=== PATIENT | female | born 1985 | race Caucasian/White ===

== ENCOUNTER → 2019-07-13 17:53 | Outpatient (CLI) | payer BC, SELFPAY ==
[2019-07-13 11:17] VITALS: BMI 31.4
[2019-07-13 21:53] LABS: Chlamydia Trachomatis by PCR Negative (Negative); Probe Check PASS
[2019-07-13 21:54] LABS: Neisserai gonorrhoeae by PCR Negative (Negative); Sample Adequacy Control PASS; Specimen Processing Control PASS
== END ==
PROVIDERS: Referring Provider Nurse Practitioner Women's Health; Visit Provider Nurse Practitioner Women's Health
DX: Z34.90 Encounter for supervision of normal pregnancy, unspecified, unspecified trimester (principal)
CPT/HCPCS: 87086; 87491; 87591

== ENCOUNTER → 2019-07-22 08:58 | Outpatient (CLI) | payer BC, SELFPAY ==
[2019-07-13 11:17] VITALS: BMI 31.4
[2019-07-22 09:38] LABS: Absolute Lymphocyte Count 1.29 X10^3/uL (0.83-4.51); Absolute Neutrophil Count 6.5 X10^3/uL (2.0-7.7); Basophil# 0.02 X10^3/uL; Basophil% 0.2 % (0-1); Eosinophils% 4.6 % (0-5); Hematocrit 37.2 % (37-47); Hemoglobin 12.3 g/dL (12.0-15.0); Lymphocyte # 1.29 X10^3/ul (4.0); Lymphocyte % 14.8 % (19-41); Mean Corp Hgb Conc 33.1 g/dL (32-36); Mean Corpuscular Hgb 29.9 pg (27.0-32.0); Mean Corpuscular Volume 90.5 fL (81-99); Mean Platelet Vol. 9.9 fl (6.2-12.0); Monocyte# 0.46 X10^3/uL; Monocyte% 5.3 % (0-10); NRBC Flagged by Analyzer 0 % (0-5); Neutrophil # 6.53 X10^3/uL (2.7-7.7); Neutrophil % 74.9 % (47-70); Platelet Count 258 K/mm3 (150-450); RBC Distribution Width CV 12.9 % (11.6-14.6); RBC Distribution Width SD 42.3 fl (35.1-43.9); Red Blood Count 4.11 M/mm3 (4.2-5.4); White Blood Count 8.7 K/mm3 (4.4-11.0)
[2019-07-22 11:14] LABS: HIV - WCH Non-Reactive (Nonreactive); Hepatitis B Surface Antigen Non-Reactive (Nonreactive); Rubella IgG 107.8 IU/mL
[2019-07-24 02:06] LABS: Rapid Plasmin Reagin (RPR) NONREACTIVE (NONREACTIVE)
== END ==
PROVIDERS: Nurse Practitioner Women's Health; Referring Provider Obstetrics & Gynecology; Visit Provider Obstetrics & Gynecology
DX: O09.511 Supervision of elderly primigravida, first trimester (principal); Z3A.00 Weeks of gestation of pregnancy not specified
CPT/HCPCS: 36415; 85025; 86592; 86703; 86762; 86850; 86900; 86901; 87340

== ENCOUNTER → 2019-09-23 14:07 | Outpatient (CLI) | payer BC, SELFPAY ==
[2019-09-23 13:26] VITALS: BMI 31.4
== END ==
PROVIDERS: Referring Provider Obstetrics & Gynecology; Visit Provider Obstetrics & Gynecology
DX: Z36.9 Encounter for antenatal screening, unspecified (principal)
CPT/HCPCS: 36415

== ENCOUNTER → 2019-11-16 13:20 | Outpatient (CLI) | payer BC, SELFPAY ==
[2019-10-21 13:46] VITALS: BMI 31.4
[2019-11-16 14:31] LABS: Absolute Lymphocyte Count 1.47 X10^3/uL (0.83-4.51); Absolute Neutrophil Count 10.2 X10^3/uL (2.0-7.7); Basophil# 0.03 X10^3/uL; Basophil% 0.2 % (0-1); Eosinophil# 0.46 X10^3/uL; Eosinophils% 3.6 % (0-5); Hematocrit 33.7 % (37-47); Hemoglobin 10.9 g/dL (12.0-15.0); Lymphocyte # 1.47 X10^3/ul (4.0); Lymphocyte % 11.6 % (19-41); Mean Corp Hgb Conc 32.3 g/dL (32-36); Mean Corpuscular Hgb 29.5 pg (27.0-32.0); Mean Corpuscular Volume 91.1 fL (81-99); Mean Platelet Vol. 9.3 fl (6.2-12.0); Monocyte# 0.42 X10^3/uL; Monocyte% 3.3 % (0-10); NRBC Flagged by Analyzer 0 % (0-5); Neutrophil # 10.21 X10^3/uL (2.7-7.7); Neutrophil % 80.8 % (47-70); Platelet Count 282 K/mm3 (150-450); RBC Distribution Width CV 12.7 % (11.6-14.6); RBC Distribution Width SD 42.1 fl (35.1-43.9); White Blood Count 12.7 K/mm3 (4.4-11.0)
[2019-11-16 14:42] LABS: Glucose Challenge Gest 1H 50g 137 mg/dL (70-140)
== END ==
PROVIDERS: Nurse Practitioner Women's Health; Visit Provider Obstetrics & Gynecology
DX: O09.91 Supervision of high risk pregnancy, unspecified, first trimester (principal); Z3A.00 Weeks of gestation of pregnancy not specified
CPT/HCPCS: 36415; 82950; 85025

== ENCOUNTER → 2020-01-12 08:42 | Outpatient (CLI) | payer BC, SELFPAY ==
[2019-12-23 10:54] VITALS: BMI 34.4
[2020-01-06 11:32] VITALS: BMI 33.4
--- NOTE | 2020-01-12 08:55 | US_ITS ---
STUDY: SECOND AND THIRD TRIMESTER OBSTETRICAL ULTRASOUND - LIMITED REASON FOR EXAM: Female, 35 years old GROWTH -- ADVANCED MATERNAL AGE LMP: 05/05/2019 PRIOR ULTRASOUND: None. TECHNIQUE: Transabdominal TECHNICAL QUALITY: Adequate. FINDINGS: There is a single intrauterine fetus. The fetus is in a cephalic presentation. There is demonstrated cardiac activity with a heart rate of 150 bpm. There is a normal amniotic fluid volume. The largest amniotic fluid pocket measures 5 x 2.1 cm. The amniotic fluid index (DION) is 15.8 cm. The placenta is anterior and low-lying There are Grade 1 placental changes. The cervix measures 4.3 cm in length and is closed. BIOMETRY: BPD: 8.71: 35 weeks, 0 days HC: 31.67: 35 weeks, 4 days AC: 31.95: 35 weeks, 6 days FL: 7.05: 36 weeks, 1 days Age by LMP: 36 weeks, 0 days. FANTA by LMP: 02/09/2020. age by prior US: 35 weeks, 3 days. FANTA by prior US: 02/13/2020. age by current US: 35 weeks, 4 days. FANTA by current US: 02/12/2020. Estimated weight: 2780 grams, +/- 411 grams, 46.44% percentile. US/OB Limited With Biometrics IMPRESSION: A single fetus is noted in cephalic presentation with a gestational age of 35 weeks 4 days based upon today''s ultrasound measurements. Electronically Signed: Morro Chang, at 18:21 EST Tel , Service support ,
== END ==
PROVIDERS: Referring Provider Nurse Practitioner Women's Health; Visit Provider Nurse Practitioner Women's Health
DX: O09.529 Supervision of elderly multigravida, unspecified trimester (principal); Z3A.35 35 weeks gestation of pregnancy
CPT/HCPCS: 76816

== ENCOUNTER → 2020-01-21 15:29 | Outpatient (CLI) | payer BC, SELFPAY ==
[2020-01-21 10:26] VITALS: BMI 33.4
== END ==
PROVIDERS: Referring Provider Obstetrics & Gynecology; Visit Provider Obstetrics & Gynecology
DX: Z34.93 Encounter for supervision of normal pregnancy, unspecified, third trimester (principal); Z3A.37 37 weeks gestation of pregnancy
CPT/HCPCS: 87081

== ENCOUNTER → 2020-02-01 10:51 | Outpatient (CLI) | payer BC, SELFPAY ==
[2020-02-01 10:41] VITALS: BMI 33.4
[2020-02-01 11:06] LABS: Absolute Lymphocyte Count 1.42 X10^3/uL (0.83-4.51); Absolute Neutrophil Count 10.6 X10^3/uL (2.0-7.7); Basophil# 0.02 X10^3/uL; Basophil% 0.2 % (0-1); Eosinophil# 0.21 X10^3/uL; Eosinophils% 1.6 % (0-5); Hematocrit 34.7 % (37-47); Hemoglobin 11.4 g/dL (12.0-15.0); Lymphocyte # 1.42 X10^3/ul (4.0); Mean Corp Hgb Conc 32.9 g/dL (32-36); Mean Corpuscular Hgb 29.2 pg (27.0-32.0); Mean Corpuscular Volume 88.7 fL (81-99); Monocyte# 0.64 X10^3/uL; Monocyte% 4.9 % (0-10); NRBC Flagged by Analyzer 0 % (0-5); Neutrophil # 10.55 X10^3/uL (2.7-7.7); Neutrophil % 81.5 % (47-70); Platelet Count 264 K/mm3 (150-450); RBC Distribution Width CV 13.1 % (11.6-14.6); RBC Distribution Width SD 42.3 fl (35.1-43.9); Red Blood Count 3.91 M/mm3 (4.2-5.4); White Blood Count 12.9 K/mm3 (4.4-11.0)
== END ==
PROVIDERS: Referring Provider Nurse Practitioner Women's Health; Visit Provider Nurse Practitioner Women's Health
DX: O99.019 Anemia complicating pregnancy, unspecified trimester (principal); Z3A.00 Weeks of gestation of pregnancy not specified
CPT/HCPCS: 36415; 85025

== ENCOUNTER → 2020-02-08 14:54 | Outpatient (CLI) | payer BC, SELFPAY ==
[2020-02-05 14:22] VITALS: BMI 33.4
--- NOTE | 2020-02-08 14:56 | US_ITS ---
STUDY: SECOND AND THIRD TRIMESTER OBSTETRICAL ULTRASOUND REASON FOR EXAM: Female, 35 years old growth. AMA. LMP: May 05, 2019. TECHNIQUE: Transabdominal TECHNICAL QUALITY: Adequate. PRIOR ULTRASOUND: January 12, 2020. FINDINGS: There is a single intrauterine fetus. The fetus is in a cephalic presentation. There is demonstrated cardiac activity with a heart rate of 136 bpm. There is decreased amniotic fluid volume consistent with oligohydramnios. The largest amniotic fluid pocket measures 3.31 cm. The amniotic fluid index (DION) is 6.66 cm. The placenta is anterior in location and is not low lying. There are Grade 2 placental changes. The cervix is not visualized. BIOMETRY: BPD: 9.32 cm: 38 weeks, 0 days HC: 33.78 cm: 38 weeks, 6 days AC: 35.37 cm: 39 weeks, 2 days FL: 7.78 cm: 39 weeks, 6 days CI: 82 FL/BPD: 83 FL/HC: FL/AC: 22 HC/AC: 0.96 age by current US: 39 weeks, 0 days. FANTA by current US: February 15, 2020. Estimated weight: 3699 grams, +/- 540 grams, 59 %. age by prior US: 39 weeks, 3 days. FANTA by prior US: February 12, 2020. Age by LMP: 39 weeks, 6 days. FANTA by LMP: February 09, 2020. US/OB Limited With Biometrics IMPRESSION: 1. Live single intrauterine at 39 weeks, 0 days. FANTA is February 15 2020. There is adequate interval growth since the prior study. 2. EFW 3699 g. 3. Oligohydramnios. The DION is 6.66 cm 4. Anterior grade 2 placenta. 5. Vertex presentation. The ordering physician''s office ([facility]) was advised of the low DION high level by the flash oven operator at 1540 hours. Electronically Signed: Kevyn Luo DO at 16:40 EDT Tel [phone], Service support ,
== END ==
PROVIDERS: Referring Provider Nurse Practitioner Women's Health; Visit Provider Nurse Practitioner Women's Health
DX: O09.522 Supervision of elderly multigravida, second trimester (principal); Z3A.39 39 weeks gestation of pregnancy
CPT/HCPCS: 76816

== ENCOUNTER 2020-02-12 06:56 | Inpatient (IN) | payer BC, SELFPAY ==
[2019-12-09 10:17] VITALS: BMI 33.4
[2020-02-11 09:58] VITALS: BMI 33.4
[2020-02-12] VITALS (36 sets, daily range): BP systolic 119–142; BP diastolic 67–93; PULSE 64–90; TEMP 36.4–36.9; O2SAT 97–99; BMI 37.5
--- NOTE | 2020-02-12 07:51 | HP.PCM_ITS ---
- Problem List (1) AMA (advanced maternal age) multigravida 35+ Status: Acute Qualifiers: Comment: genetic counseling nl, nl growth US at 36 weeks. repeat growth at 40 weeks, nst weekly after 40 plan IOL bt 40-41, patient prefers minimal intervention so exp management as long as reassuring testing (2) Abnormal glucose affecting Status: Acute Comment: declines 3gtt, plan home glucose monitoring x 1 week- within normal values mostly. encouraged healthy diet (3) Anemia affecting Status: Acute Qualifiers: Comment: iron,01/31 WNL (4) Asthma affecting in third trimester Status: Acute Comment: albuterol PRN. mild intermittent (5) History of depression Status: Acute Comment: no meds at present (6) Status: Acute Qualifiers: Comment: NIPT low risk. Carrier screening negative for 14 out of 14. AFP negative. Anatomy US normal (7) Procreative management for assisted fertility procedure cycle Status: Acute Comment: IUI-[facility] Progesterone 200mg vag daily (8) SVT (supraventricular tachycardia) Status: Acute Comment: metoprolol (9) Supervision of high risk in first trimester Status: Acute Comment: PRR FANTA 02/09/20 Girl PC Stan Flores(adopted) Spouse Adrian History and Physical Date of Admission: 02/12/20 Intake Vital Signs 02/11/20 BMI 33.4 02/11/20 Height 5 ft 9 in 02/11/20 Weight: 252 lb 8 oz 02/11/20 BMI 37.3 02/11/20 BP 128/80 H 01/06/20 BMI 33.4 Intake Visit Reasons: 39 WK OB/NST Demonstrator Sales Required: No Is patient in pain?: No Allergies No Known Allergies Allergy (Verified 02/11/20 09:55) Medications albuterol sulfate 90 mcg/actuation aerosol inhaler 2 puff INHALATION Q6H 07/13/19 [History Confirmed 02/11/20] docosahexaenoic acid 200 mg capsule mg PO cap 07/13/19 [History Confirmed 02/11/20] metoprolol succinate 25 mg tablet,extended release 24 hr 12.5 mg PO DAILY tab 07/13/19 [History Confirmed 02/11/20] blood sugar diagnostic See Rx Instructions .ROUTE .MEDSUPPLY #100 ea 11/16/19 [Rx Confirmed 02/11/20] blood-glucose meter See Rx Instructions .ROUTE .MEDSUPPLY #1 ea 11/16/19 [Rx Confirmed 02/11/20] ferrous sulfate 325 mg (65 mg iron) tablet 325 mg PO DAILY 12/09/19 [History Confirmed 02/11/20] budesonide 90 mcg/actuation breath activated powder inhaler 1 inh INHALATION BID #1 ea 01/06/20 [Rx Confirmed 02/11/20] Last Menstral Period: 05/05/19 Zika: Zika virus screening: Negative : No PFSH PFSH Medical History Asthma (Acute) Psoriasis (Acute) Supraventricular tachycardia (Acute) Surgical History [place] teeth extracted (Acute) deviated septum repair (Acute) Family History Father Heart disease Social History (Updated 02/11/20 @ 10:[address] Kadi Orozco MD) number of children: 2 current occupational status: unemployed Smoking Status: Never smoker alcohol intake: never substance use type: does not use seatbelt use: always do you feel safe at home: Yes additional social history: Adrian finance Pregancy History 2 Elective abortions Hx Para Spontaneous abortions 1 Hx # Term Pregnancies Ectopic pregnancies Hx # Pregnancies Multiple births # of living children HPI 39 WK OB/NST: Details: RENNY PECK is a 35 year old who presents for IOL secondary to AMA. she has done well with the . OB Visit FANTA Calculator Estimated Delivery Date Method Current WG Current Estimate 02/09/20 LMP (Certain) 40w 2d Other Estimates 02/11/20 Ultrasound #1 40w 0d Expected Delivery Route/Plan Labor Preferences- labor support person: Adrian pain management options preferred: minimal intervention, hydrotherapy, open to touch cut cord/dad catch: yes : yes PP control planned: discussed possible routes of delivery and associated risks: yes and no concerns special requests: [] Specific Issue/Plans fflu vaccine: given tdap vaccine: given rhogam: na LARC form signed: declined Problem list reviewed and updated with the most current plan of care details and appropriate orders placed. Relevant counseling for the gestational age provided. Continue routine care and follow up unless otherwise noted in visit notes/problem list details Initial Weight: Not Recorded Date EGA Weight BP Urine Prot Glucose FHR FuHt Pres Dilation Effaced St Visit Note 07/13/19 9w 6d 213 lb 4 oz 110/78 168 No spotting or bleeding. 07/28/19 12w 0d 213 lb 104/74 Negative Negative 175 no vb cramping 08/25/19 16w 0d 213 lb 120/76 Negative Negative 155 no vb cramping some nausea and heartburn- ordered zantac 09/23/19 20w 1d 217 lb 2 oz 122/60 Negative Negative 150 no vb cramping doing well 10/21/19 24w 1d 220 lb 4 oz 106/73 Negative Negative 144 24 Good FM. No VB, LOF 11/16/19 27w 6d 226 lb 8 oz 110/68 Negative Negative 145 28 SM- no vb lof good fm no regular ctx, discussed 3 hr gtt and declines, plan home BS monitoring 12/09/19 31w 1d 230 lb 122/68 Negative Negative 145 32 SM- no vb lof good fm no regular ctx recent URI treated with z pack and steroid pack. increased asthma symptoms but was seen and on steroid. 12/23/19 33w 1d 233 lb 124/60 Negative Negative 147 34 Good FM, No VB, LOF. Growth US at 36 wk. 01/06/20 35w 1d 238 lb 130/82 Trace Negative 140 35 SM- no vb lof good fm no regular ctx 01/21/20 37w 2d 242 lb 116/82 Negative Negative 150 37 Cephalic 1 SM- no vb lof good fm no regular ctx reviewed preferences 01/25/20 37w 6d 244 lb 2 oz 120/68 Trace 1000 g/dL 140 37 Cephalic 1 SM- no vb lof good fm no regular ctx 02/01/20 38w 6d 246 lb 120/80 Negative Negative 147 38 Cephalic 1 MH-no VB, LOF. Good FM MH-no VB, LOF. Good FM CBC today 02/05/20 39w 3d 249 lb 120/76 Negative Negative 145 39 Cephalic 1 SM- no vb lof good fm no regular ctx. discussed IOL vs exp management. 02/11/20 40w 2d 252 lb 8 oz 128/80 Negative Negative 150 40 Cephalic 2 SM- no vb lof good fm nor egular ctx hemal 13 cm Notes Visit Date: 02/11/20 ??No visit notes to display Visit Date: 02/05/20 ??No visit notes to display Visit Date: 02/01/20 ??No visit notes to display Visit Date: 01/25/20 ??No visit notes to display Visit Date: 01/21/20 ??No visit notes to display Visit Date: 01/06/20 ??No visit notes to display Visit Date: 12/23/19 ??No visit notes to display Visit Date: 12/09/19 ??No visit notes to display Visit Date: 11/16/19 ??No visit notes to display Visit Date: 10/21/19 ??Good FM. No VB, LOF ??Yue Simeon NP-C on 10/21/19 Visit Date: 09/23/19 ??no vb cramping doing well ??Kadi Orozco MD on 09/23/19 Visit Date: 08/25/19 ??no vb cramping some nausea and heartburn- ordered zantac ??Kadi Orozco MD on 08/25/19 Visit Date: 07/28/19 ??no vb cramping ??Kadi Orozco MD on 07/28/19 Visit Date: 07/13/19 ??No spotting or bleeding. ??RYAN SmileyC on 07/13/19 ACOG First Trimester First Trimester: Desire for , Alcohol, Tobacco Cessation, Illicit/Recreational Drug/Substance Use, Intimate Partner Violence, Barriers to care, Unstable Housing, Communication Barriers, Environmental/Work Hazards, Anticipated Course of Care, Toxoplasmosis Precations, Use of Any medications, Sexual activity, Exercise, Dental Care, Sauna/Hot tub use, Seat Belt use, Childbirth classes/Hospital facilities, , Travel, Indications for US and Screening for Aneuploidy Second Trimester Second Trimester: Signs and Symptoms of Labor, Selecting a care provider, Reproductive Life Planning, Care Planning, Tobacco Cessation, Depression/Anxiety and Intimate Partner Violence Third Trimester Third Trimester: Pain Management Plans, Labor support person(s), Immediate Larc, Movement Monitoring and Feeding Yes ; discussed Trial of Labor after Counseling or discussed Circumcision preference Diagnostics Diagnostics Diagnostics Glucose 1 Hr 50 gm 137 mg/dL (70-140) 11/16/19 Hgb 11.4 g/dL (12.0-15.0) L 02/01/20 Hct 34.7 % (37-47) L 02/01/20 Details: HIV: Urine Culture: Sequential Screen: NIPT Screen: ROS Const Reports system reviewed and no additional complaints, except as docu Card Reports system reviewed and no additional complaints, except as docu Resp Reports system reviewed and no additional complaints, except as docu GI Reports system reviewed and no additional complaints, except as docu, Reports nausea Reports system reviewed and no additional complaints, except as docu Musc Reports system reviewed and no additional complaints, except as docu Exam Const General: cooperative, healthy appearing, comfortable, anxious HENOR Head: normal to inspection Nose: external nose normal Face and sinus: normal facial exam Neck Neck: normal visual inspection, full ROM, no lymphadenopathy Thyroid: thyroid normal Chest Chest palpation & inspection: normal inspection of the chest Resp Effort & Inspection: normal respiratory effort GI Inspection: normal to inspection Palpation: soft, other (gravid uterus) Other: vertex and appropriate size for gestational age Other: Cervical Exam: Extrem General: pedal edema Results POC Urinalysis 2 Dip (Clinic) Office Urine Glucose Negative Last Edit by Monica Negron on 02/11/20 10:04 Office Urine Protein Negative Last Edit by Monica Negron on 02/11/20 10:04 Assessment & Plan Problems 1. Asthma affecting in third trimester O99.513; J45.909 albuterol PRN. mild intermittent 2. Abnormal glucose affecting O99.810 declines 3gtt, plan home glucose monitoring x 1 week- within normal values mostly. encouraged healthy diet 3. Anemia affecting in third trimester O99.013 iron,01/31 WNL 4. SVT (supraventricular tachycardia) I47.1 metoprolol 5. History of depression Z86.59 no meds at present 6. Procreative management for assisted fertility procedure cycle Z31.83 IUI-[facility] Progesterone 200mg vag daily 7. Supervision of high risk in first trimester O09.91 PRR FANTA 02/09/20 Girl Stan Del Rosario(adopted) Spouse Adrian 8. Multigravida of advanced maternal age in second trimester O09.522 genetic counseling nl, nl growth US at 36 weeks. repeat growth at 40 weeks, nst weekly after 40 plan IOL bt 40-41, patient prefers minimal intervention so exp management as long as reassuring testing 9. 40 weeks gestation of Z3A.40 NIPT low risk. Carrier screening negative for 14 out of 14. AFP negative. Anatomy US normal Patient presents IOL, plan management for , cytotec Pain management: minimal intervention GBS negative Management of any complications: AMA I have reviewed the [facility] and made any clinically relevant updates. Orders Orders: POC Urinalysis 2 Dip (Clinic) Today Coding Level of Care Code OB Routine Diagnoses Asthma affecting in third trimester O99.513; J45.909 Abnormal glucose affecting O99.810 Anemia affecting in third trimester O99.013 ??Trimester: third trimester SVT (supraventricular tachycardia) I47.1 History of depression Z86.59 Procreative management for assisted fertility procedure cycle Z31.83 Supervision of high risk in first trimester O09.91 Multigravida of advanced maternal age in second trimester O09.522 ??Trimester: second trimester 40 weeks gestation of Z3A.40 ??Weeks of gestation: 40 weeks
[2020-02-12 08:20] LABS: Absolute Lymphocyte Count 1.37 X10^3/uL (0.83-4.51); Absolute Neutrophil Count 8.7 X10^3/uL (2.0-7.7); Basophil# 0.02 X10^3/uL; Basophil% 0.2 % (0-1); Eosinophil# 0.22 X10^3/uL; Hemoglobin 10.8 g/dL (12.0-15.0); Lymphocyte # 1.37 X10^3/ul (4.0); Lymphocyte % 12.5 % (19-41); Mean Corp Hgb Conc 32.7 g/dL (32-36); Mean Corpuscular Hgb 29.3 pg (27.0-32.0); Mean Corpuscular Volume 89.7 fL (81-99); Mean Platelet Vol. 10.4 fl (6.2-12.0); Monocyte# 0.56 X10^3/uL; Monocyte% 5.1 % (0-10); NRBC Flagged by Analyzer 0 % (0-5); Neutrophil # 8.68 X10^3/uL (2.7-7.7); Neutrophil % 79.4 % (47-70); Platelet Count 241 K/mm3 (150-450); RBC Distribution Width CV 13.2 % (11.6-14.6); RBC Distribution Width SD 43.1 fl (35.1-43.9); Red Blood Count 3.68 M/mm3 (4.2-5.4); White Blood Count 10.9 K/mm3 (4.4-11.0)
[2020-02-12] MEDS: miSOPROStol 25 MCG TABLET VAGINAL (08:24)
[2020-02-12] MEDS: miSOPROStol 50 MCG TABLET VAGINAL (13:02)
[2020-02-12] MEDS: Lactated Ringers 500 ML 999 ML IV ×4 (16:30→22:50)
[2020-02-12] MEDS: 0.9% Normal Saline Single 100 ML IV.SOLN. IY (16:54)
[2020-02-12] MEDS: Acetaminophen 325 MG Tablet PO (17:29)
[2020-02-12] MEDS: Lactated Ringers 1,000 ML 200 ML IV (23:20)
[2020-02-12] MEDS: fentaNYL-bupivacaine (epidural) 100 ML BAG EPIDURAL (23:37)
[2020-02-13] VITALS (38 sets, daily range): BP systolic 109–155; BP diastolic 57–84; PULSE 71–117; RESP 16–18; TEMP 36.5–36.9; O2SAT 97–100
--- NOTE | 2020-02-13 00:32 | OB.TRI.PN ---
Progress Notes Date of Service: 02/13/20 Progress Note: reviewed tracing, moderate variability with intermittent late decels, resolved with position changes. /-2. Laboratory Studies: Laboratory Tests 02/12/20 02/12/20 Range/Units 07:35 07:35 WBC 10.9 (4.4-11.0) K/mm3 RBC 3.68 L (4.2-5.4) M/mm3 Hgb 10.8 L (12.0-15.0) g/dL Hct 33.0 L (37-47) % MCV 89.7 (81-99) fL MCH 29.3 (27.0-32.0) pg MCHC 32.7 (32-36) g/dL RDW Std Deviation 43.1 (35.1-43.9) fl RDW Coeff of [place]ady 13.2 (11.6-14.6) % Plt Count 241 (150-450) K/mm3 MPV 10.4 (6.2-12.0) fl Immature Gran % (Auto) 0.800 (0.0-0.9) % Neut % (Auto) 79.4 H (47-70) % Lymph % (Auto) 12.5 L (19-41) % [place] % (Auto) 5.1 (0-10) % Eos % (Auto) 2.0 (0-5) % Baso % (Auto) 0.2 (0-1) % Absolute Neuts (auto) 8.7 H (2.0-7.7) X10^3/uL Absolute Lymphs (auto) 1.37 (0.83-4.51) X10^3/uL Nucleated RBC % 0 (0-5) % Blood Type O POSITIVE Antibody Screen NEGATIVE - Problem List (1) AMA (advanced maternal age) multigravida 35+ Status: Acute Qualifiers: Comment: genetic counseling nl, nl growth US at 36 weeks. repeat growth at 40 weeks, nst weekly after 40 plan IOL bt 40-41, patient prefers minimal intervention so exp management as long as reassuring testing (2) Abnormal glucose affecting Status: Acute Comment: declines 3gtt, plan home glucose monitoring x 1 week- within normal values mostly. encouraged healthy diet (3) Anemia affecting Status: Acute Qualifiers: Comment: iron,16 WNL (4) Asthma affecting in third trimester Status: Acute Comment: albuterol PRN. mild intermittent (5) History of depression Status: Acute Comment: no meds at present (6) Status: Acute Qualifiers: Comment: NIPT low risk. Carrier screening negative for 14 out of 14. AFP negative. Anatomy US normal (7) Procreative management for assisted fertility procedure cycle Status: Acute Comment: IUI-[facility] Progesterone 200mg vag daily (8) SVT (supraventricular tachycardia) Status: Acute Comment: metoprolol (9) Supervision of high risk in first trimester Status: Acute Comment: PRR FANTA 02/09/20 Girl Stan Del Rosario(adopted) Spouse Adrian
[2020-02-13] MEDS: Mag Hydrox/Al Hydrox/Simeth 30 ML UDC PO (03:13)
[2020-02-13] MEDS: Lactated Ringers 1,000 ML 200 ML IV (03:13)
[2020-02-13] MEDS: Lactated Ringers 500 ML 999 ML IV (04:51)
[2020-02-13] MEDS: Oxytocin 30 units/NS 500 ml 30 UNITS/500 ML IV.SOLN IV (05:09)
--- NOTE | 2020-02-13 08:36 | OP.PCM_ITS ---
Problem List (1) AMA (advanced maternal age) multigravida 35+ Status: Acute Qualifiers: Comment: genetic counseling nl, nl growth US at 36 weeks. repeat growth at 40 weeks, nst weekly after 40 plan IOL bt 40-41, patient prefers minimal intervention so exp management as long as reassuring testing (2) Abnormal glucose affecting Status: Acute Comment: declines 3gtt, plan home glucose monitoring x 1 week- within normal values mostly. encouraged healthy diet (3) Anemia affecting Status: Acute Qualifiers: Comment: iron,01/31 WNL (4) Asthma affecting in third trimester Status: Acute Comment: albuterol PRN. mild intermittent (5) History of depression Status: Acute Comment: no meds at present (6) Status: Acute Qualifiers: Comment: NIPT low risk. Carrier screening negative for 14 out of 14. AFP negative. Anatomy US normal (7) Procreative management for assisted fertility procedure cycle Status: Acute Comment: IUI-[facility] Progesterone 200mg vag daily (8) SVT (supraventricular tachycardia) Status: Acute Comment: metoprolol (9) Supervision of high risk in first trimester Status: Acute Comment: PRR FANTA 02/09/20 Girl PC Stan Flores(adopted) Spouse Adrian Vaginal Delivery Maternal Presentation: Medically Indicated Induction iol ama postdates Amniotic Membrane Rupture Type: Spontaneous Amniotic Fluid Description: Moderate meconium Final FANTA: 02/09/20 Gestational age: 40 Weeks and 5 Days Date of Procedure: 02/13/20 Pre-Operative Diagnosis: iol ama postdates Post-Operative Diagnosis: same Surgery/ Procedure Performed: Spontaneous Vaginal Delivery Type of Anesthesia: Epidural Description of Procedure: Patient began pushing and delivered the head in the FELICIA presentation. The head was delivered atraumatically. The anterior and posterior shoulders delivered without complication followed by the rest of the infant and the was placed on the maternal abdomen. Delayed cord clamping was employed for approximately 60 seconds. Cord was clamped and cut and gentle traction was appl ied to the cord and the placenta delivered spontaneously immediately following it was noted to be intact with three-vessel cord. The perineum and vagina were inspected and noted to have a partial third-degree laceration that was repaired in the usual fashion reapproximating the torn muscle and capsule with 2-0 Vicryl and the remainder of the repair with 3-0 Vicryl Rapide. EBL was 400 cc. Patien t and infant tolerated delivery well. Presentation: FELICIA Placental Delivery Description: Spontaneous Placenta Disposition: [facility] Cord Entanglement: None Estimated Blood Loss: 400 A gender: Female Episiotomy Description: None Laceration: Perineal Extension/lac, 3rd degree Medications given after delivery: IV Pitocin Complications: None Multi Select Codes - Urinary/Genital Urinary/Genital CPT Codes: 91725 Vaginal Delivery [facility]
[2020-02-13] MEDS: Oxytocin 30 units/NS 500 ml 30 UNITS/500 ML IV.SOLN 334 UNITS IV (09:12)
[2020-02-13] MEDS: Ketorolac 10 MG Tablet PO ×2 (12:24→18:23)
[2020-02-13] MEDS: Docusate Sodium 100 MG Capsule PO (12:24)
[2020-02-13] MEDS: Prenatal Vits Tablet 1 TABLET PO (12:24)
--- NOTE | 2020-02-13 15:59 | CPS ---
spoke with patients nurse, patient only uses inhalers prn at home. RN will claify and call us back if patient wants tx's
[2020-02-14] VITALS (10 sets, daily range): BP systolic 113–127; BP diastolic 63–81; PULSE 77–96; RESP 16–18; TEMP 36.7
[2020-02-14] MEDS: Docusate Sodium 100 MG Capsule PO ×3 (01:16→22:24)
[2020-02-14] MEDS: Ketorolac 10 MG Tablet PO ×2 (01:17→08:01)
--- NOTE | 2020-02-14 03:54 | DCINST_ITS ---
Discharge Diet: No Restrictions Discharge Activity: Return to Normal Activity, May not drive while taking narcotic pain medications., May Shower May resume sexual activity in: 4-6 weeks Call your doctor if your incision/area has: Continuous Slow Oozing, Sudden Increased Bleeding, Increased Pain/ Swelling, Increased Redness, Foul Smelling Discharge Additional Instructions: If you experience any of the following, contact your healthcare provider. * Bleeding that soaks a pad every hour for 2 hours * Fever 100.4 or higher * Unrelieved incision or abdominal pain * Swelling, redness, discharge or bleeding from your incision or episiotomy site * Your incision begins to separate * Problems urinating (including inability to urinate or burning while urinating). * Visual changes * Severe headache * Flu-like symptoms * Pain or redness in one of both of your breasts * Pain, warmth, tenderness or swelling in your legs, especially the calf area * Frequent nausea and vomiting * Symptoms of depression or anxiety If you experience any of the following, call 911 or go to the nearest Emergency Room. * Chest pain * Problems breathing * Seizure activity * Partial or complete paralysis of a body part, slurred speech, weakness or drooping of the face, or a sudden inability to walk or hold your balance Allergies/Adverse Reactions: Allergies No Known Allergies Allergy (Verified 02/11/20 09:55) Medications to take at Discharge albuterol sulfate 90 mcg/actuation aerosol inhaler 2 puff INHALATION Q6H 07/13/19 docosahexaenoic acid 200 mg capsule mg PO cap 07/13/19 metoprolol succinate 25 mg tablet,extended release 24 hr 12.5 mg PO DAILY tab 07/13/19 ferrous sulfate 325 mg (65 mg iron) tablet 325 mg PO DAILY 12/09/19 Budesonide Inhaler 90 mcg [Pulmicort Flexhaler 90 mcg] 1 inh INHALATION BID 02/12/20 Vits [Prenatabs FA] 1 tab PO DAILY 02/12/20 Docusate Sodium [Colace] 100 mg PO BID #60 cap 02/14/20 Naproxen [Naprosyn] 250 - 500 mg PO Q8H PRN PRN #30 tab 02/14/20 The following prescriptions were given: Docusate Sodium [Colace] 100 mg PO BID #60 cap Transmission Status: [facility] Naproxen [Naprosyn] 250 - 500 mg PO Q8H PRN PRN #30 tab PRN Reason: MILD PAIN Transmission Status: [id number] [facility] Please Follow Up With: Kadi Orozco MD - [phone] When: Call to make an appointment with your doctor in 6 weeks. If you had elevated Blood pressure or 4th degree laceration you will need to be seen in 2 weeks. Primary Care Physician: Care Physician,No Primary [Primary Care Provider] - Test Results: Test results from this visit will be discussed in further detail at your follow- up appointment, if applicable.
--- NOTE | 2020-02-14 03:54 | PN.OBGYN_ITS ---
Subjective: doing well no complaints pain controlled no CP SOB N V ambulating well tolerating po lochia moderate, going well. having difficulty voiding- very swollen still. cath replaced for now. - Physical Exam Vitals/I&O's: Vital Signs Temp Pulse Resp BP Pulse Ox 98.1 F 90 18 124/81 H 98 02/14/20 00:50 02/14/20 00:51 02/14/20 00:50 02/14/20 00:51 02/13/20 15:45 Oxygen Delivery Method Room Air Weight: 254 lb 6.4 oz Body Mass Index (BMI) 37.5 Intake and Output for Last 24 Hours 02/12/20 02/13/20 02/14/20 23:59 23:59 23:59 Intake Total 3045.70 / 3045.70 Output Total 2049 400 / 400 Balance 995.70 / 995.70 -400 / -400 General: Alert, Oriented x3 Current Medications Acetaminophen (Tylenol) 1,000 mg PO Q8H PRN PRN PRN Reason: Pain Score 1-3/10 Albuterol Sulfate (Ventolin Aerosols) 2.5 mg INHALATION Q6H.RT [facility] Last Admin: 02/13/20 16:00 Dose: Not Given Documented by: Bisacodyl (Dulcolax) 10 mg RECTAL UD PRN PRN Reason: If no BM Budesonide (Pulmicort Aerosol) 0.5 mg INHALATION Q12H.RT [facility] Last Admin: 02/13/20 16:00 Dose: Not Given Documented by: Dibucaine (Dibucaine) 1 applic TOPICAL TID PRN PRN; Protocol PRN Reason: Discomfort Docusate Sodium (Colace) 100 mg PO BID [facility] Last Admin: 02/14/20 01:16 Dose: 100 mg Documented by: Ferrous Sulfate (Ferrous Sulfate) 325 mg PO DAILY@0800 [facility] Hydrocortisone (Hytone) 1 applic TOPICAL TID PRN PRN; Protocol PRN Reason: Discomfort Ketorolac Tromethamine (Toradol) 10 mg PO Q6H PRN PRN PRN Reason: Pain Score 1-5/10 Stop: 02/18/20 09:39 Last Admin: 02/14/20 01:17 Dose: 10 mg Documented by: Methylergonovine Maleate (Methergine) 0.2 mg IM X1 PRN PRN Reason: Excess bleeding/uterine atony Ondansetron HCl (Zofran) 4 mg IV Q4H PRN PRN PRN Reason: Nausea Oxycodone HCl (Oxyir) 5 - 10 mg PO Q4H PRN PRN PRN Reason: Pain Score 4-10/10 Multivit/Folic Acid/Iron (Prenatabs Fa) 1 tablet PO DAILY@1200 [facility] Last Admin: 02/13/20 12:24 Dose: 1 tablet Documented by: Senna/Docusate Sodium (Senokot-S, Felecia-Colace) 1 - 2 tablet PO DAILY PRN PRN PRN Reason: Constipation Simethicone (Mylicon) 80 mg PO PCHS PRN PRN Reason: Indigestion/Stomach pain Sodium Chloride () 5 - 15 ml IV UD PRN PRN Reason: SALINE FLUSH Throat Lozenges (Dermoplast (Sp)) 1 applic TOPICAL 4X/DAY PRN PRN; Protocol PRN Reason: Pain Score 1-10/10 Last Admin: 02/13/20 20:22 Dose: 1 applic Documented by: Medical Necessity - Tobacco Use Smoking Status: Never smoker Assessment/Plan All Active Problems (Last Reviewed 02/11/20 @ 09:54 by Monica Negron) Asthma affecting in third trimester (Acute) Abnormal glucose affecting (Acute) Anemia affecting (Acute ~11/2019) SVT (supraventricular tachycardia) (Acute) History of depression (Acute) Procreative management for assisted fertility procedure cycle (Acute) Supervision of high risk in first trimester (Acute) AMA (advanced maternal age) multigravida 35+ (Acute) (Acute) Subchorionic hemorrhage in first trimester (Resolved) s/p PPD # 1 1. routine post delivery care 2. breast feeding- support given 3. rh positive 4. rubella immune voiding difficulty- cath x 6 hours and then will resume voiding trial consider dc home today
--- NOTE | 2020-02-14 08:21 | NURSING ---
gomes in place
[2020-02-14] MEDS: Ferrous Sulfate 325 MG Tablet PO (09:14)
[2020-02-14] MEDS: Acetaminophen 500 MG Tablet 1000 MG PO ×2 (14:20→22:24)
[2020-02-14] MEDS: Prenatal Vits Tablet 1 TABLET PO (14:20)
--- NOTE | 2020-02-14 15:35 | NURSING ---
Patient report of some dribbling during voiding on toilet- patient voided 50 ml in hat. Once patient got into the shower about 30 minutes later, she reported voiding normally in shower and feeling like she emptied her bladder. Amount was not measured, but patient feels like bladder was emptied adequately. This RN replaced the hat in the toilet and told the patient to try to void into the toilet another time if she can in the next few hours!
[2020-02-14] MEDS: Naproxen 250 MG Tablet 500 MG PO (18:33)
[2020-02-15 02:30] VITALS: BP 115/75; PULSE 82; RESP 16; TEMP 36.7
[2020-02-15 02:37] VITALS: BP 115/75; PULSE 82
[2020-02-15] MEDS: Naproxen 250 MG Tablet 500 MG PO (02:41)
--- NOTE | 2020-02-15 06:56 | PCM.PN.OB ---
Subjective: doing well no complaints pain controlled no CP SOB N V ambulating well tolerating po lochia moderate, going well - Physical Exam Vitals/I&O's: Vital Signs Temp Pulse Resp BP Pulse Ox 98.0 F 82 16 115/75 98 02/15/20 02:30 02/15/20 02:37 02/15/20 02:30 02/15/20 02:37 02/13/20 15:45 Oxygen Delivery Method Room Air Weight: 254 lb 6.4 oz Body Mass Index (BMI) 37.5 Intake and Output for Last 24 Hours 02/13/20 02/14/20 02/15/20 23:59 23:59 23:59 Intake Total 3045.70 / 3045.70 Output Total 2049 / 2049 1050 / 1050 100 / 100 Balance 995.70 / 995.70 -1050 / -1050 -100 / -100 General: Alert, Oriented x3 Current Medications Acetaminophen (Tylenol) 1,000 mg PO Q8H PRN PRN PRN Reason: Pain Score 1-3/10 Last Admin: 02/14/20 22:24 Dose: 1,000 mg Documented by: Albuterol Sulfate (Ventolin Aerosols) 2.5 mg INHALATION Q6H.RT [facility] Last Admin: 02/15/20 01:03 Dose: Not Given Documented by: Bisacodyl (Dulcolax) 10 mg RECTAL UD PRN PRN Reason: If no BM Budesonide (Pulmicort Aerosol) 0.5 mg INHALATION Q12H.RT [facility] Last Admin: 02/14/20 18:47 Dose: Not Given Documented by: Dibucaine (Dibucaine) 1 applic TOPICAL TID PRN PRN; Protocol PRN Reason: Discomfort Docusate Sodium (Colace) 100 mg PO BID [facility] Last Admin: 02/14/20 22:24 Dose: 100 mg Documented by: Ferrous Sulfate (Ferrous Sulfate) 325 mg PO DAILY@0800 [facility] Last Admin: 02/14/20 09:14 Dose: 325 mg Documented by: Hydrocortisone (Hytone) 1 applic TOPICAL TID PRN PRN; Protocol PRN Reason: Discomfort Methylergonovine Maleate (Methergine) 0.2 mg IM X1 PRN PRN Reason: Excess bleeding/uterine atony Naproxen (Naprosyn) 500 mg PO BID PRN PRN Reason: PAIN 1-10/10 Last Admin: 02/15/20 02:41 Dose: 500 mg Documented by: Ondansetron HCl (Zofran) 4 mg IV Q4H PRN PRN PRN Reason: Nausea Oxycodone HCl (Oxyir) 5 - 10 mg PO Q4H PRN PRN PRN Reason: Pain Score 4-10/10 Multivit/Folic Acid/Iron (Prenatabs Fa) 1 tablet PO DAILY@1200 [facility] Last Admin: 02/14/20 14:20 Dose: 1 tablet Documented by: Senna/Docusate Sodium (Senokot-S, Felecia-Colace) 1 - 2 tablet PO DAILY PRN PRN PRN Reason: Constipation Simethicone (Mylicon) 80 mg PO PCHS PRN PRN Reason: Indigestion/Stomach pain Sodium Chloride () 5 - 15 ml IV UD PRN PRN Reason: SALINE FLUSH Throat Lozenges (Dermoplast (Sp)) 1 applic TOPICAL 4X/DAY PRN PRN; Protocol PRN Reason: Pain Score 1-10/10 Last Admin: 02/13/20 20:22 Dose: 1 applic Documented by: Medical Necessity - Tobacco Use Smoking Status: Never smoker Assessment/Plan All Active Problems (Last Reviewed 02/11/20 @ 09:54 by Monica Negron) Asthma affecting in third trimester (Acute) Abnormal glucose affecting (Acute) Anemia affecting (Acute ~11/2019) SVT (supraventricular tachycardia) (Acute) History of depression (Acute) Procreative management for assisted fertility procedure cycle (Acute) Supervision of high risk in first trimester (Acute) AMA (advanced maternal age) multigravida 35+ (Acute) (Acute) Subchorionic hemorrhage in first trimester (Resolved) s/p PPD #2 1. routine post delivery care 2. breast feeding- support given 3. rh positive 4. rubella immune
[2020-02-15 08:18] VITALS: BP 115/76; PULSE 93
[2020-02-15] MEDS: Acetaminophen 500 MG Tablet 1000 MG PO (08:25)
[2020-02-15] MEDS: Docusate Sodium 100 MG Capsule PO (08:26)
[2020-02-15] MEDS: Ferrous Sulfate 325 MG Tablet PO (08:27)
[2020-02-15 08:30] VITALS: BP 115/78; PULSE 70; RESP 16; TEMP 36.6
== END 2020-02-15 10:15 | disposition home or self-care (01) | DRG 768 ==
PROVIDERS: Admitting Provider Obstetrics & Gynecology; Referring Provider Obstetrics & Gynecology; Visit Provider Obstetrics & Gynecology
DX: O48.0 Post-term pregnancy (principal); O70.20 Third degree perineal laceration during delivery, unspecified; O77.0 Labor and delivery complicated by meconium in amniotic fluid; O99.42 Diseases of the circulatory system complicating childbirth; I47.1 Supraventricular tachycardia; O76 Abnormality in fetal heart rate and rhythm complicating labor and delivery; O99.52 Diseases of the respiratory system complicating childbirth; J45.909 Unspecified asthma, uncomplicated; O99.02 Anemia complicating childbirth; D64.9 Anemia, unspecified; Z79.899 Other long term (current) drug therapy; Z3A.40 40 weeks gestation of pregnancy; Z37.0 Single live birth
CPT/HCPCS: 59025; 59050; 85025; 86850; 86900; 86901; 99218; J7120; G0378

== ENCOUNTER → 2020-02-19 16:10 | Outpatient (CLI) | payer BC, SELFPAY ==
[2020-02-19 11:57] VITALS: BMI 37.5
== END ==
PROVIDERS: Referring Provider Obstetrics & Gynecology; Visit Provider Obstetrics & Gynecology
DX: R30.0 Dysuria (principal)
CPT/HCPCS: 87077; 87086; 87088; 87186

== ENCOUNTER → 2020-03-03 11:29 | Outpatient (CLI) | payer BC, SELFPAY ==
[2020-02-19 11:57] VITALS: BMI 37.5
== END ==
PROVIDERS: Referring Provider Obstetrics & Gynecology; Visit Provider Obstetrics & Gynecology
DX: O92.29 Other disorders of breast associated with pregnancy and the puerperium (principal)
CPT/HCPCS: 96158; 96159

== ENCOUNTER → 2020-03-11 15:30 | Outpatient (CLI) | payer BC, SELFPAY ==
[2020-03-11 14:45] VITALS: BMI 37.5
== END ==
PROVIDERS: Referring Provider Obstetrics & Gynecology; Visit Provider Obstetrics & Gynecology
DX: N89.8 Other specified noninflammatory disorders of vagina (principal)
CPT/HCPCS: 87070; 87205

== ENCOUNTER → 2020-06-18 16:04 | Outpatient (CLI) | payer BC, SELFPAY ==
[2020-03-24 13:41] VITALS: BMI 37.5
== END ==
PROVIDERS: Referring Provider Obstetrics & Gynecology; Visit Provider Obstetrics & Gynecology
DX: Z39.1 Encounter for care and examination of lactating mother (principal)
CPT/HCPCS: 96158; 96159

== ENCOUNTER → 2020-11-24 10:31 | Outpatient (CLI) | payer BC, SELFPAY ==
[2020-03-24 13:41] VITALS: BMI 37.5
[2020-11-24 11:42] LABS: hCG Titer Quant., Serum 33 mIU/mL (1-3)
== END ==
PROVIDERS: Referring Provider Obstetrics & Gynecology; Visit Provider Obstetrics & Gynecology
DX: N91.2 Amenorrhea, unspecified (principal)
CPT/HCPCS: 36415; 84702

== ENCOUNTER → 2020-11-26 10:35 | Outpatient (CLI) | payer BC, SELFPAY ==
[2020-03-24 13:41] VITALS: BMI 37.5
[2020-11-26 11:34] LABS: hCG Titer Quant., Serum 104 mIU/mL (1-3)
== END ==
PROVIDERS: Referring Provider Obstetrics & Gynecology; Visit Provider Obstetrics & Gynecology
DX: N91.2 Amenorrhea, unspecified (principal)
CPT/HCPCS: 36415; 84702

== ENCOUNTER → 2020-12-30 | Outpatient (CLI) | payer BC, SELFPAY ==
[2020-12-30 08:19] VITALS: BMI 36.3
[2020-12-30 18:08] LABS: Amphetamine Urine VISTA NEGATIVE (<1000 ng/mL); Barbiturate Urine VISTA NEGATIVE (< 200 ng/mL); Benzodiazepine Urine VISTA NEGATIVE (< 200 ng/mL); Cocaine Urine VISTA NEGATIVE (< 300 ng/mL); Ecstacy Urine VISTA NEGATIVE (< 500 ng/mL); Methadone Urine VISTA NEGATIVE (< 300 ng/mL); PCP Urine VISTA NEGATIVE (< 25 ng/mL); THC Urine VISTA NEGATIVE (< 50 ng/mL); Vista UDS pH Range 5
[2021-01-03 04:08] LABS: Chlamydia By Nucleic Acid AMP Negative (Negative)
[2021-01-03 07:41] LABS: Gonococcus By Nucleic Acid AMP Negative (Negative)
[2021-01-05 20:10] LABS: HPV Genotype 16, Aptima Negative (Negative)
[2021-01-06 10:49] LABS: HPV APTIMA, High Risk Positive (Negative); HPV Genotype 18,45 Aptima Negative (Negative)
== END | disposition home or self-care (01) ==
LOC: LABSPEC 16:45
PROVIDERS: Visit Provider Obstetrics & Gynecology
DX: Z12.4 Encounter for screening for malignant neoplasm of cervix (principal); Z11.3 Encounter for screening for infections with a predominantly sexual mode of transmission; Z34.90 Encounter for supervision of normal pregnancy, unspecified, unspecified trimester
CPT/HCPCS: 80307; 87086; 87088; 87491; 87591; 87624; 88175; G0145

== ENCOUNTER → 2021-01-13 14:44 | Outpatient (CLI) | payer BC, SELFPAY ==
[2020-12-30 08:19] VITALS: BMI 36.3
[2021-01-13 15:29] LABS: Absolute Lymphocyte Count 1.56 X10^3/uL (0.83-4.51); Absolute Neutrophil Count 7.6 X10^3/uL (2.0-7.7); Basophil# 0.03 X10^3/uL; Basophil% 0.3 % (0-1); Eosinophil# 0.23 X10^3/uL; Eosinophils% 2.3 % (0-5); Hematocrit 39.6 % (37-47); Hemoglobin 12.4 g/dL (12.0-15.0); Lymphocyte # 1.56 X10^3/ul (4.0); Lymphocyte % 15.9 % (19-41); Mean Corp Hgb Conc 31.3 g/dL (32-36); Mean Corpuscular Hgb 27.7 pg (27.0-32.0); Mean Corpuscular Volume 88.6 fL (81-99); Mean Platelet Vol. 10.1 fl (6.2-12.0); Monocyte# 0.35 X10^3/uL; Monocyte% 3.6 % (0-10); NRBC Flagged by Analyzer 0 % (0-5); Neutrophil # 7.64 X10^3/uL (2.7-7.7); Neutrophil % 77.8 % (47-70); Platelet Count 271 K/mm3 (150-450); RBC Distribution Width CV 13.2 % (11.6-14.6); Red Blood Count 4.47 M/mm3 (4.2-5.4); White Blood Count 9.8 K/mm3 (4.4-11.0)
[2021-01-13 16:43] LABS: HIV - WCH Non-Reactive (Nonreactive); Hepatitis B Surface Antigen Non-Reactive (Nonreactive); Hepatitis C Antibody Non-Reactive (Nonreactive); Rubella IgG Reactive (Nonreactive)
[2021-01-16 08:36] LABS: Syphilis Antibodies Non-reactive
== END ==
PROVIDERS: Referring Provider Obstetrics & Gynecology; Visit Provider Obstetrics & Gynecology
DX: Z34.90 Encounter for supervision of normal pregnancy, unspecified, unspecified trimester (principal)
CPT/HCPCS: 36415; 85025; 86592; 86703; 86762; 86803; 86850; 86900; 86901; 87340

== ENCOUNTER → 2021-02-27 10:15 | Outpatient (CLI) | payer OTHER, SELFPAY ==
[2021-02-27 09:43] VITALS: BMI 35.0
== END ==
PROVIDERS: Obstetrics & Gynecology; Referring Provider Nurse Practitioner Women's Health; Visit Provider Nurse Practitioner Women's Health
DX: O09.529 Supervision of elderly multigravida, unspecified trimester (principal); Z3A.00 Weeks of gestation of pregnancy not specified
CPT/HCPCS: 36415

== ENCOUNTER → 2021-04-28 11:26 | Outpatient (CLI) | payer OTHER, SELFPAY ==
[2021-04-28 11:07] VITALS: BMI 35.0
[2021-04-28 13:41] LABS: Absolute Lymphocyte Count 1.31 X10^3/uL (0.83-4.51); Absolute Neutrophil Count 9.8 X10^3/uL (2.0-7.7); Basophil# 0.01 X10^3/uL; Basophil% 0.1 % (0-1); Eosinophil# 0.21 X10^3/uL; Eosinophils% 1.8 % (0-5); Hematocrit 35.2 % (37-47); Hemoglobin 11.2 g/dL (12.0-15.0); Lymphocyte # 1.31 X10^3/ul (0.83-4.51); Mean Corp Hgb Conc 31.8 g/dL (32-36); Mean Corpuscular Hgb 28.9 pg (27.0-32.0); Mean Corpuscular Volume 90.7 fL (81-99); Mean Platelet Vol. 10.2 fl (6.2-12.0); Monocyte# 0.47 X10^3/uL; Monocyte% 3.9 % (0-10); NRBC Flagged by Analyzer 0 % (0-5); Neutrophil # 9.84 X10^3/uL (2.7-7.7); Neutrophil % 82.5 % (47-70); Platelet Count 290 K/mm3 (150-450); RBC Distribution Width CV 13.3 % (11.6-14.6); RBC Distribution Width SD 44.3 fl (35.1-43.9); Red Blood Count 3.88 M/mm3 (4.2-5.4); White Blood Count 11.9 K/mm3 (4.4-11.0)
[2021-04-28 14:08] LABS: Glucose Challenge Gest 1H 50g 126 mg/dL (70-140)
== END ==
PROVIDERS: Referring Provider Nurse Practitioner Women's Health; Visit Provider Nurse Practitioner Women's Health
DX: O09.90 Supervision of high risk pregnancy, unspecified, unspecified trimester (principal); Z13.1 Encounter for screening for diabetes mellitus
CPT/HCPCS: 36415; 82950; 85025

== ENCOUNTER → 2021-07-07 14:34 | Outpatient (CLI) | payer OTHER, SELFPAY ==
[2021-06-13 10:00] VITALS: BMI 35.0
--- NOTE | 2021-07-07 14:36 | US_ITS ---
STUDY: SECOND AND THIRD TRIMESTER OBSTETRICAL ULTRASOUND - LIMITED REASON FOR EXAM: Female, 36 years old growth LMP: 10/28/2020. PRIOR ULTRASOUND: None. TECHNIQUE: Transabdominal TECHNICAL QUALITY: Adequate. FINDINGS: There is a single intrauterine fetus. The fetus is in a cephalic presentation. There is demonstrated cardiac activity with a heart rate of 140 bpm. There is a normal amniotic fluid volume. The largest amniotic fluid pocket measures 5.6 cm. The amniotic fluid index (DION) is 16.5 cm. The placenta is anterior in location and is not low lying. There are Grade 2 placental changes. The cervix was not measured due to the head position. BIOMETRY: BPD: 8.7 cm: 35 weeks, 2 days HC: 32.3 cm: 36 weeks, 3 days AC: 34.3 cm: 38 weeks, 1 days FL: 7.5 cm: 38 weeks, 3 days Age by LMP: 36 weeks, 6 days. FANTA by LMP: 08/04/2021. age by current US: 36 weeks, 6 days. FANTA by current US: 2020. Estimated weight: 3332 grams, +/- 500 grams, 92% percentile. US/OB Limited With Biometrics IMPRESSION: Single live intrauterine gestation with a mean gestational age of 36 weeks and 6 days. Electronically Signed: Marco Page MD at 9:56 EDT , Service support ,
== END ==
PROVIDERS: Referring Provider Obstetrics & Gynecology; Visit Provider Obstetrics & Gynecology
DX: O09.522 Supervision of elderly multigravida, second trimester (principal); I47.1 Supraventricular tachycardia; Z3A.00 Weeks of gestation of pregnancy not specified
CPT/HCPCS: 76816

== ENCOUNTER → 2021-07-11 09:59 | Outpatient (CLI) | payer OTHER, SELFPAY ==
[2021-07-11 10:23] LABS: Absolute Lymphocyte Count 1.29 X10^3/uL (0.83-4.51); Absolute Neutrophil Count 8.9 X10^3/uL (2.0-7.7); Basophil# 0.02 X10^3/uL; Basophil% 0.2 % (0-1); Eosinophil# 0.12 X10^3/uL; Eosinophils% 1.1 % (0-5); Hematocrit 33.2 % (37-47); Hemoglobin 10.9 g/dL (12.0-15.0); Lymphocyte # 1.29 X10^3/ul (0.83-4.51); Lymphocyte % 11.8 % (19-41); Mean Corp Hgb Conc 32.8 g/dL (32-36); Mean Corpuscular Hgb 28.9 pg (27.0-32.0); Mean Corpuscular Volume 88.1 fL (81-99); Mean Platelet Vol. 10.6 fl (6.2-12.0); Monocyte# 0.63 X10^3/uL; Monocyte% 5.7 % (0-10); NRBC Flagged by Analyzer 0 % (0-5); Neutrophil # 8.85 X10^3/uL (2.7-7.7); Neutrophil % 80.7 % (47-70); Platelet Count 252 K/mm3 (150-450); RBC Distribution Width CV 13.2 % (11.6-14.6); RBC Distribution Width SD 42.2 fl (35.1-43.9); Red Blood Count 3.77 M/mm3 (4.2-5.4)
[2021-07-11 11:04] LABS: ALB/GLOB Ratio 0.6 RATIO (0.9-2.4); AST(SGOT) 15 U/L (15-37); Alanine Aminotransfer ALT/SGPT 14 U/L (13-56); Albumin, Serum 2.5 g/dL (3.2-5.0); Alkaline Phosphatase 108 U/L (45-117); Anion Gap 5 (5-15); BUN 11 mg/dL (7-18); BUN/Creat Ratio 18.2 RATIO (10-20); Chloride 113 mmol/L (98-107); Creatinine, Serum 0.61 mg/dL (0.55-1.02); EST Glomerular Filtration Rate 117 mL/min (>60); Est Glom Filt Rate - Afr Amer 142 mL/min (>60); Globulin 4.1 g/dL (2.2-4.2); Glucose 90 mg/dL (74-106); Potassium 4.1 mmol/L (3.5-5.1); Protein, Total 6.6 g/dL (6.4-8.2); Sodium Level 139 mmol/L (136-145)
== END ==
PROVIDERS: Referring Provider Obstetrics & Gynecology; Visit Provider Obstetrics & Gynecology
DX: O09.93 Supervision of high risk pregnancy, unspecified, third trimester (principal); O16.3 Unspecified maternal hypertension, third trimester; Z3A.00 Weeks of gestation of pregnancy not specified
CPT/HCPCS: 36415; 80053; 85025; 87081

== ENCOUNTER 2021-07-23 23:09 | Inpatient (IN) | payer OTHER, SELFPAY ==
[2021-07-24] VITALS (24 sets, daily range): BP systolic 113–150; BP diastolic 66–93; PULSE 68–96; RESP 16; TEMP 36.2–37; O2SAT 97–99; BMI 38.4
[2021-07-24] MEDS: Lactated Ringers 1,000 ML 50 ML IV (01:05)
[2021-07-24] MEDS: Lactated Ringers 500 ML 999 ML IV (01:05)
[2021-07-24 01:17] LABS: Absolute Lymphocyte Count 1.37 X10^3/uL (0.83-4.51); Basophil# 0.02 X10^3/uL; Basophil% 0.2 % (0-1); Eosinophil# 0.13 X10^3/uL; Hematocrit 34.5 % (37-47); Hemoglobin 11.3 g/dL (12.0-15.0); Lymphocyte # 1.37 X10^3/ul (0.83-4.51); Lymphocyte % 10.3 % (19-41); Mean Corp Hgb Conc 32.8 g/dL (32-36); Mean Corpuscular Hgb 28.5 pg (27.0-32.0); Mean Corpuscular Volume 87.1 fL (81-99); Mean Platelet Vol. 10.7 fl (6.2-12.0); Monocyte# 0.65 X10^3/uL; Monocyte% 4.9 % (0-10); NRBC Flagged by Analyzer 0 % (0-5); Neutrophil % 82.8 % (47-70); Platelet Count 307 K/mm3 (150-450); RBC Distribution Width SD 41.2 fl (35.1-43.9); Red Blood Count 3.96 M/mm3 (4.2-5.4); White Blood Count 13.3 K/mm3 (4.4-11.0)
[2021-07-24] MEDS: Oxytocin 30 units/NS 500 ml 30 UNITS/500 ML IV.SOLN 334 UNITS IV (02:45)
--- NOTE | 2021-07-24 03:02 | HP.PCM.OB_ITS ---
HPI - General General Date of Admission: 07/23/21 HPI Narrative RENNY PECK, is a 36 F at 38/3 who presents in active labor Maternal Data Information FANTA Calculator Estimated Delivery Date Method Current WG Current Estimate 08/04/21 LMP (Certain) 38w 3d Other Estimates 08/03/21 Ultrasound #1 38w 4d PFSH PFSH Medical History (Updated 07/24/21 @ 03:[address] Krystina Mcqueen MD) Asthma Gestational HTN History of tetanus, diphtheria, and acellular pertussis booster vaccination (Tdap) HPV (human papilloma virus) infection Infertility Psoriasis Supraventricular tachycardia Home Medications vit,[id number] 1 tab PO DAILY 02/12/20 [History Last Taken 07/23/21 21:00] famotidine [Pepcid] 20 mg PO DAILY 07/24/21 [History Last Taken 07/21/21 08:00] Allergy/AdvReac Type Severity Reaction Status Date / Time No Known Allergies Allergy Verified 07/24/21 00:29 Family History Father Heart disease Surgical History deviated septum repair History of nasal surgery [place] teeth extracted Social History adopted: No household members: family housing: house number of children: 1 current occupational status: unemployed Smoking Status: Never smoker alcohol intake: never substance use type: does not use seatbelt use: always do you feel safe at home: Yes additional social history: Bi finance History 3 Elective abortions Hx Para 1 Spontaneous abortions 1 Hx # Term Pregnancies Ectopic pregnancies Hx # Pregnancies Multiple births # of living children 1 Past Pregnancies Del. Date Name GA/Weeks Outcome Route Bth Weight Gen Labor Lgth Anesthesia Del Locatn Provider FOB 02/13/20 Danielle 40 live - full term 7lbs 14oz Female epidural [facility] Delivery Date: 02/13/20 IoL AMA, 3RD DEGREE LACERATION Carmina Wiley Visit Details Expected Delivery Route/Plan Labor Preferences- labor support person: bi labor intervention preferences: minimal intervention, ideally would like only vaccinated staff members, had reaction to sutures after last delivery, tub in labor pain management options preferred: open to epidural cut cord/dad catch: yes : yes PP control planned: vasectomy discussed possible routes of delivery and associated risks: undecided if would be willing to utilize vacuum, declines forceps special requests: [] Plans covid vaccine: vaccinated flu vaccine: declined tdap vaccine: 04/28 rhogam: NA LARC form signed: 05/15 Problem list reviewed and updated with the most current plan of care details and appropriate orders placed. Relevant counseling for the gestational age provided. Continue routine care and follow up unless otherwise noted in visit notes/problem list details OB Flowsheet Initial Weight: 246 lb Date -?-?-?-?-?-?-?-?-?-?-?-?- EGA Weight BP Urine Prot -?-?-?-?-?-?-?-?-?-?-?-?- Glucose FHR FuHt Pres Dilation -?-?-?-?-?-?-?-?-?-?-?-?- Effaced St Visit Note 12/30/20 -?-?-?-?--?-?-?-?-?-?-?-?- 9w 0d 246 lb (+0 oz) 132/76 132/76 -?-?-?-?-?-?-?-?-?-?-?-?- 170 -?-?-?-?-?-?-?-?-?-?-?-?- SM- CRL cons wit h LMP SM- CRL 2.2 cons with LMP 02/03/21 -?-?-?-?-?-?-?-?-?-?-?-?- 14w 0d 242 lb (-4 lb) 120/76 Negative -?-?-?-?-?-?-?-?-?-?-?-?- Negative 150 -?-?-?-?-?-?-?-?-?-?-?-?- SM- no vb crampi ng still some nausea 02/27/21 -?-?-?-?-?-?-?-?-?-?-?-?- 17w 3d 237 lb 6 oz (-8 lb 10 oz) 126/70 Trace -?-?-?-?-?-?-?-?-?-?-?-?- Negative 146 -?-?-?-?-?-?-?-?-?-?-?-?- MH-NO VB, LOF. N ausea can still be problematic. US scheduled. AFP today. 03/27/21 -?-?-?-?-?-?-?-?-?-?-?-?- 21w 3d 237 lb (-9 lb) 96/74 Negative -?-?-?-?-?-?-?-?-?-?-?-?- Negative 145 -?-?-?-?-?-?-?-?-?-?-?-?- SM- obtain anato my results, fu with PCP regarding asthma. ordered pepcid for reflux 04/28/21 -?-?-?-?-?-?-?-?-?-?--?-?- 26w 0d 243 lb (-3 lb) 110/86 Negative -?-?-?-?-?-?-?-?-?-?-?-?- Negative 145 26 -?-?-?-?-?-?-?-?-?-?-?-?- SM- just got out of the hospital with Stan. doing okay had infection. no vb good fm no regular ctx 05/15/21 -?-?-?-?-?-?-?-?-?-?-?-?- 28w 3d 249 lb 6 oz (+3 lb 6 oz) 122/82 Negative -?-?-?-?-?-?-?-?-?-?-?-?- Negative 130 28 -?-?-?-?-?-?-?-?-?-?-?-?- GP - no LOF, VB, DFM, ctx. LARC form signed. 05/29/21 -?-?-?-?-?-?-?-?-?-?-?-?- 30w 3d 252 lb (+6 lb) 110/78 Negative -?-?-?-?-?-?-?-?-?-?-?-?- Negative 150 30 -?-?-?-?-?-?-?-?-?-?-?-?- GP - no LOF, VB, DFM, ctx. Denies complaints. 06/13/21 -?-?-?-?-?-?-?-?-?-?-?-?- 32w 4d 254 lb (+8 lb) 114/82 Negative -?-?-?-?-?-?-?-?-?-?-?-?- 100 g/dL 140 32 -?-?-?-?-?-?-?-?-?-?-?-?- SM- no vb lof go od fm nor egular ctx 06/28/21 -?-?-?-?-?-?--?-?-?-?-?-?- 34w 5d 257 lb 6 oz (+11 lb 6 oz) 122/82 Negative -?-?-?-?-?-?-?-?-?-?-?-?- Negative 140 34 -?-?-?-?-?-?-?-?-?-?-?-?- GP - no LOF, VB, DFM, ctx. Denies complaints. GP - no LOF, VB, DFM, ctx. D enies complaints. Discussed labor preferences 07/11/21 -?-?-?-?-?-?-?-?-?-?-?-?- 36w 4d 264 lb (+18 lb) 132/76 Negative -?-?-?-?-?-?-?-?-?-?-?-?- Negative 140 38 -?-?-?-?-?-?-?-?-?-?-?-?- SM- no vb lof go od fm nor egular ctx SM- no vb lof good fm nor eg ular ctx. intermittent REZA, bps normal at home when supine, check cbc cmp preeclampsia precautions reviewed 07/20/21 -?-?-?-?-?-?-?-?-?-?-?-?- 37w 6d 266 lb 2 oz (+20 lb 2 oz) 138/80 Negative -?-?-?-?-?-?-?-?-?-?-?-?- Negative 135 38 Cephalic 1 -?-?-?-?-?-?-?-?-?-?-?-?- GP - no LOF, VB, DFM, ctx. Denies complaints. 07/23/21 -?-?-?-?-?-?-?-?-?-?-?-?- 38w 2d 260 lb 2.327 oz (+14 lb 2.327 oz) 140/93 147/70 -?-?-?-?-?-?-?-?-?-?-?-?- -?-?-?-?-?-?-?-?-?-?-?-?- NST FHR Rate Baby A Baseline: 120 Variability:: Moderate Accelerations:: 15 x 15 Decelerations:: Variable FHR Category:: Category II Uterine Activity:: q2 min ROS Eyes Eyes: Reports systems reviewed and no addt'l complaints, except as documented ENT HEENT: Reports systems reviewed and no addt'l complaints, except as documented Cardiovascular Cardiovascular: Reports systems reviewed and no addt'l complaints, except as documented Respiratory/Chest Respiratory/Chest: Reports systems reviewed and no addt'l complaints, except as documented Gastrointestinal Gastrointestinal: Reports systems reviewed and no addt'l complaints, except as documented Genitourinary Genitourinary: Reports systems reviewed and no addt'l complaints, except as documented Musculoskeletal Musculoskeletal: Reports systems reviewed and no addt'l complaints, except as documented Integumentary Integumentary: Reports systems reviewed and no addt'l complaints, except as documented Neurologic Neurologic: Reports systems reviewed and no addt'l complaints, except as documented Psychiatric Psychiatric: Reports systems reviewed and no addt'l complaints, except as documented Endocrine Endocrinology: Reports systems reviewed and no addt'l complaints, except as documented Hematologic/Lymphatic Hematologic/Lymphatic: Reports systems reviewed and no addt'l complaints, except as documented Allergic/Immunologic Allergic/Immunologic: Reports systems reviewed and no addt'l complaints, except as documented Vital Signs Vital Signs Vital Signs: 07/24/21 01:21 Temperature 97.2 F L Temperature Source Temporal Pulse Rate 81 Blood Pressure 140/93 H BP Systolic 140 BP Diastolic 93 Pulse Ox 97 Weight Weight: 260 lb 2.327 oz Body Mass Index (BMI) 38.4 Physical Exam Const alert, oriented x3, no apparent distress, average body habitus, healthy appearing and well nourished HEENT normocephalic and moist oral mucous membranes Head and Scalp: atraumatic Eyes PERRL and EOMs intact bilaterally Neck full ROM Resp normal respiratory effort, no retractions and no use of accessory muscles Cardio regular rate and regular rhythm GI soft to palpation, non-tender and non-distended Extremity normal to inspection and full ROM Skin no rashes or lesions noted Neuro no focal motor deficits and no sensory deficits noted Psych mental status grossly normal, affect normal, speech normal and activity/motor behavior normal Labs Labs Labs: Blood Type O POSITIVE Antibody Screen NEGATIVE Hct 34.5 % (37-47) L Hgb 11.3 g/dL (12.0-15.0) L Pap Smear Negative Obstetrics US Syphilis Total Ab Non-reactive Rubella IgG Antibody Reactive (Nonreactive) Hep Bs Antigen Non-Reactive (Nonreactive) Neisseria gonorrhoeae DNA (VALERIE) Negative (Negative) HIV 1&2 Antibody Non-Reactive (Nonreactive) C.trachomatis DNA (PCR) Negative (Negative) Glucose 1 Hr 50 gm 126 mg/dL (70-140) Rhogam given: No Miscellaneous Test Assessment & Plan (1) History of depression: COMMENT: no meds at present (2) SVT (supraventricular tachycardia): COMMENT: not on any medications (3) AMA (advanced maternal age) multigravida 35+: QUALIFIERS: Trimester: second trimester Qualified Code(s): O09.522 - Supervision of elderly multigravida, second trimester COMMENT: growth scan in 3rd trimester (4) : QUALIFIERS: Weeks of gestation: 37 weeks Qualified Code(s): Z3A.37 - 37 weeks gestation of COMMENT: genetic- low risk; had carrier in previous ; Negative AFP, nl anatomy; GBS neg (5) Supervision of high risk , antepartum: COMMENT: PRR FANTA: 08/04/21 surprise PC: Danielle (Isauro, Stan- adopted) Spouse: Bi (6) H/O maternal third degree perineal laceration, currently : (7) Asthma affecting , antepartum: COMMENT: has inhaler uses BID and PRN inhaler (8) Obesity affecting : COMMENT: BMI 36, 1 TM glucola, encourage healthy weight gain (9) HPV test positive: COMMENT: NL pap; needs repeat pap at PP visit (10) History of tetanus, diphtheria, and acellular pertussis booster vaccination (Tdap): COMMENT: 04/28/21 (11) Active labor at term: PLAN: Patient presents IAL, plan expectant management for , pitocin if needed. Pain management: plans epidural. GBS negative. Management of any complications: none I have reviewed the PFSH and made any clinically relevant updates.
--- NOTE | 2021-07-24 03:07 | OP.PCM_ITS ---
Assessment & Plan (1) Spontaneous vaginal delivery: COMMENT: GP JORGE VargasMartha 2nd degree (2) Active labor at term: (3) History of depression: COMMENT: no meds at present (4) SVT (supraventricular tachycardia): COMMENT: not on any medications (5) AMA (advanced maternal age) multigravida 35+: QUALIFIERS: Trimester: second trimester Qualified Code(s): O09.522 - Supervision of elderly multigravida, second trimester COMMENT: growth scan in 3rd trimester (6) : QUALIFIERS: Weeks of gestation: 37 weeks Qualified Code(s): Z3A.37 - 37 weeks gestation of COMMENT: genetic- low risk; had carrier in previous ; Negative AFP, nl anatomy; GBS neg (7) Supervision of high risk , antepartum: COMMENT: PRR FANTA: 08/04/21 surprise PC: Danielle (Isauro, Stan- adopted) Spouse: Adrian (8) H/O maternal third degree perineal laceration, currently : (9) Asthma affecting , antepartum: COMMENT: has inhaler uses BID and PRN inhaler (10) Obesity affecting : COMMENT: BMI 36, 1 TM glucola, encourage healthy weight gain (11) HPV test positive: COMMENT: NL pap; needs repeat pap at PP visit (12) History of tetanus, diphtheria, and acellular pertussis booster vaccination (Tdap): COMMENT: 04/28/21 Maternal Data Information FANTA Calculator Estimated Delivery Date Method Current WG Current Estimate 08/04/21 LMP (Certain) 38w 3d Other Estimates 08/03/21 Ultrasound #1 38w 4d Vaginal Delivery Maternal Presentation Maternal Presentation: Active Labor Maternal Presentation: 36-year-old G3, P1 at 38 weeks gestation admitted in active labor. Patient made rapid cervical change to complete dilation without augmentation. Operative Information Date of Procedure: 07/24/21 Pre-Operative Diagnosis: Term , active labor Post-Operative Diagnosis: Same Surgery / Procedure Performed: Spontaneous Vaginal Delivery Type of Anesthesia: Local with 1% Lidocaine Drain: Heath to straight drain Estimated Blood Loss: 200 Findings Description of Procedure: Patient began pushing and delivered the head in the FELICIA presentation. The head was delivered atraumatically and no nuchal cord was noted. The anterior and posterior shoulders delivered without complication followed by the rest of the and the was placed on the maternal abdomen. Delayed cord clamping was employed for approximately 60 seconds. Cord was clamped and cut and gentle traction was applied to the cord and the placenta delivered spontaneously immediately following it was noted to be intact with three-vessel cord. The perineum and vagina were inspected and a midline second- degree perineal laceration was noted. The area was instilled with 20 cc of 1% lidocaine and repaired in the standard fashion using 3-0 Vicryl rapide suture. EBL was 200 cc. Patient and infant tolerated delivery well. Presentation: Vertex and FELICIA Amniotic Membrane Rupture Type: Spontaneous Amniotic Fluid Description: Clear Placenta Disposition: [facility] Cord Vessel Description: 3 Vessels Cord Entanglement: None Infant A Gender: Female Delayed Cord Clamping: Yes Post Vaginal Delivery Medications Given After Delivery: IV Pitocin Episiotomy Description: None Laceration: Midline, Perineal Extension/lac and 2nd degree Complication Complications: None Procedures Urinary/Genital [id number]: [id number] Vaginal Delivery [facility]
[2021-07-24] MEDS: oxyCODONE 5 MG Tablet PO (03:29)
[2021-07-24] MEDS: 0.9% Saline Lock 10 ML Syringe IV (05:15)
--- NOTE | 2021-07-24 06:34 | NURSING ---
report given to desi GALLEGOS. that rn to assume care of pt at this time.
[2021-07-24] MEDS: Famotidine 20 MG Tablet PO (10:34)
--- NOTE | 2021-07-24 10:41 | PCM.DC ---
Discharge Instructions Diet Discharge Diet: No restrictions Activity Discharge Activity: Return to Normal Activity, May Not Drive (while taking narcotic pain medications.) and May Shower May resume sexual activity in: 4-6 weeks Dressing / Incision Call your doctor if your incision/area has: Continuous Slow Oozing, Sudden Increased Bleeding, Increased Pain/ Swelling, Increased Redness and Foul Smelling Discharge Follow Up Care When: Call to make an appointment with your doctor in 6 weeks. If you had elevated Blood Pressure or 4th degree laceration you will need to be seen in 2 weeks. Test Results: Test results from this visit will be discussed in further detail at your follow-up appointment, if applicable. Discharge Plan Admission Admit Date/Time: 07/23/21 23:09 Attending Provider: Krystina Mcqueen Primary Care Provider: Care Physician,aMrie Primary Instructions Patient Instructions: After a Vaginal Discharge Orders/Prescriptions Prescriptions: New ibuprofen 800 mg tablet 800 mg PO Q8H PRN (Reason: pain) Qty: 30 RF: 1 Continued vit,[id number] 1 TABLET tablet 1 tab PO DAILY RF: 0 famotidine [Pepcid] 20 mg tablet 20 mg PO DAILY RF: 0 Referrals / Follow Up: Care Physician,No Primary [Primary Care Provider] -
[2021-07-24] MEDS: Ibuprofen 600 MG Tablet PO ×2 (10:50→19:35)
[2021-07-25 02:00] VITALS: BP 140/70; PULSE 88; RESP 18; TEMP 36.6
--- NOTE | 2021-07-25 07:51 | PCM.PN.OB ---
Subjective Subjective Patient doing well without complaints. Tolerating PO. Ambulating and voiding without difficulty. Feeding well. Denies chest pain, shortness of breath, calf pain/swelling, fevers, chills, lightheadedness. Objective Data Objective Data Vital Signs: Vital Signs Temp Pulse Resp BP Pulse Ox 97.8 F 88 18 140/70 H 97 07/25/21 02:00 07/25/21 02:00 07/25/21 02:00 07/25/21 02:00 07/24/21 05:02 Oxygen Delivery Method Room Air Weight: 260 lb 2.327 oz Body Mass Index (BMI) 38.4 Intake & Output: Intake and Output for Last 24 Hours 07/23/21 07/24/21 07/25/21 23:59 23:59 23:59 Intake Total 1878.33 / 1878.33 Output Total 1350 / 1350 Balance 528.33 / 528.33 Lab / Micro Data Result Diagrams: 07/24/21 01:05 Micro: Microbiology 07/24/21 01:05 Nasal Secretion SARS-CoV-2 Antigen (Rapid) - Final Physical Exam Const alert and oriented x3 HEENT normocephalic Eyes PERRL Neck full ROM Resp normal respiratory effort GI soft to palpation GI Narrative: FF below U Assessment & Plan (1) Spontaneous vaginal delivery: COMMENT: GP IAL Girl-Martha 2nd degree (2) History of pre-eclampsia: PLAN: s/p PPD # 1 1. routine post delivery care 2. breast feeding- support given 3. rh positive 4. rubella immune 5. plans home today 6. Recheck BP prior to discharge and if elevated needs BP check 1 week in office
[2021-07-25 08:14] VITALS: BP 123/78; PULSE 75; RESP 16; TEMP 36.4
[2021-07-25] MEDS: Famotidine 20 MG Tablet PO (10:07)
== END 2021-07-25 12:15 | disposition home or self-care (01) | DRG 807 ==
PROVIDERS: Admitting Provider Obstetrics & Gynecology; Referring Provider Obstetrics & Gynecology; Visit Provider Obstetrics & Gynecology
DX: O99.214 Obesity complicating childbirth (principal); Z37.0 Single live birth; E66.9 Obesity, unspecified; O70.1 Second degree perineal laceration during delivery; Z3A.38 38 weeks gestation of pregnancy
CPT/HCPCS: 59025; 59050; 85025; 86850; 86900; 86901; 87426; 99218; J7120; A4216; G0378

== ENCOUNTER → 2021-09-04 | Outpatient (CLI) | payer OTHER, SELFPAY ==
[2021-09-08 13:32] LABS: HPV APTIMA, High Risk Negative (Negative)
== END | disposition home or self-care (01) ==
LOC: LABSPEC 16:09
PROVIDERS: Visit Provider Obstetrics & Gynecology
DX: Z12.4 Encounter for screening for malignant neoplasm of cervix (principal)
CPT/HCPCS: 87624; 88175; G0145

== ENCOUNTER → 2022-09-07 | Outpatient (CLI) | payer BC, SELFPAY ==
[2022-09-18 18:45] LABS: HPV APTIMA, High Risk Negative (Negative)
== END | disposition home or self-care (01) ==
LOC: LABSPEC 13:31
PROVIDERS: PCP Physician Assistant; Visit Provider Obstetrics & Gynecology
DX: Z12.4 Encounter for screening for malignant neoplasm of cervix (principal)
CPT/HCPCS: 87624; 88175; G0145